=== PATIENT | male | born 1995 | race African-American/Black ===

== ENCOUNTER 2016-10-20 20:38 | Emergency (ER) | payer MEDICAID, OTHER ==
[~2016-10-20] VITALS: Ht 185.4 cm; Wt 84.0 kg
[2016-10-20 21:30] VITALS: BP 137/73
== END 2016-10-20 21:50 | disposition home or self-care (01) ==
LOC: ER 21:11
DX: T78.40XA Allergy, unspecified, initial encounter (principal)
CPT/HCPCS: 99283

== ENCOUNTER 2018-09-27 17:04 | Emergency (ER) | payer OTHER ==
[~2018-09-27] VITALS: Ht 182.9 cm; Wt 91.0 kg
[2018-09-27 17:11] VITALS: BP 136/80
== END 2018-09-27 22:11 | disposition left against medical advice (07) ==
LOC: ER 17:04
DX: Z53.21 Procedure and treatment not carried out due to patient leaving prior to being seen by health care provider (principal)